=== PATIENT | male | born 1960 | race Caucasian/White ===

== ENCOUNTER 2023-04-04 13:55 | Outpatient (CLI) | payer BC, SELFPAY | END 2023-04-04 13:56 | disposition home or self-care (01) | PROVIDERS: PCP Family Medicine; Visit Provider Family Medicine | DX: R53.83 Other fatigue (principal); Z13.6 Encounter for screening for cardiovascular disorders; Z12.5 Encounter for screening for malignant neoplasm of prostate; Z13.29 Encounter for screening for other suspected endocrine disorder | CPT/HCPCS: 80053; 80061; 84153; 84443 ==

== ENCOUNTER 2023-10-01 13:09 | Outpatient (CLI) | payer BC, SELFPAY | END 2023-10-01 13:10 | disposition home or self-care (01) | LOC: NFLDREF 10-02 09:02 | PROVIDERS: PCP Family Medicine; Referring Provider Family Medicine; Visit Provider Family Medicine | DX: R35.0 Frequency of micturition (principal); N39.0 Urinary tract infection, site not specified; F41.1 Generalized anxiety disorder | CPT/HCPCS: 87086 ==

== ENCOUNTER 2025-01-12 14:05 | Outpatient (CLI) | payer BC, SELFPAY | END 2025-01-12 14:06 | disposition home or self-care (01) | PROVIDERS: PCP Family Medicine; Visit Provider Family Medicine | DX: R53.83 Other fatigue (principal); N32.0 Bladder-neck obstruction; Z12.5 Encounter for screening for malignant neoplasm of prostate; Z13.21 Encounter for screening for nutritional disorder; Z13.29 Encounter for screening for other suspected endocrine disorder | CPT/HCPCS: 80048; 82306; 82607; 84443; G0103 ==

== ENCOUNTER 2025-04-08 14:50 | Outpatient (CLI) | payer BC, SELFPAY | END 2025-04-08 14:51 | disposition home or self-care (01) | LOC: LKVREF 14:50 | PROVIDERS: PCP Family Medicine; Visit Provider Family Medicine | DX: R97.20 Elevated prostate specific antigen [PSA] (principal) | CPT/HCPCS: 84153 ==

== ENCOUNTER 2025-04-26 12:38 | Outpatient (CLI) | payer BC, SELFPAY ==
--- NOTE | 2025-04-26 13:49 | W.PM.STED ---
Stress Test Note Date Date Seen: 04/26/25 Date of test: 04/26/25 Providers Primary care provider: Casey Butts Stress test physician: Jaylin Zimmer Stress Test Note Stress test ordered: Stress Echo Indication for test: Chest pain Stress test medicine: None Results discussion: Resting EKG: Sinus rhythm, 64 beats per minute. Incomplete right bundle branch block, sinus arrhythmia. Resting blood pressure: 110/70 Stress test: Patient is consented on ordered stress test which is a exercise treadmill stress echo following [place] protocol, patient consents. Patient was able to exercise 8 minutes 3 seconds before terminating due to reaching exercise capacity. This was equivalent to 9.7 Mets. He did reach a maximum heart rate of 163 beats per minute which was 122% of a calculated target heart rate of 133. Patient had a rate pressure product of 22,494. Patient experienced no chest discomfort or chest pain, had no concerning symptoms during stress testing and recovered normally. There were no noted arrhythmias, no diagnostic criteria met for ischemia on the EKG. Echo images are pending to couple this for a full formal diagnostic result. Impression: Subjectively negative, objectively negative EKG portion of this stress echo. Follow up suggested: Patient discharged in stable condition to home. He is aware the echo images will be read by Cardiology and will couple this for a full formal report. He plans to get scheduled to see Dr. Butts next week where he can discuss results.
[2025-04-26 14:01] VITALS: BP 144/58; PULSE 86; RESP 18
== END 2025-04-26 14:02 | disposition home or self-care (01) ==
LOC: STRESS 12:39
PROVIDERS: PCP Family Medicine; Visit Provider Family Medicine
DX: R07.9 Chest pain, unspecified (principal)
CPT/HCPCS: 93016; 93325; 93351

== ENCOUNTER 2025-09-22 14:34 | Outpatient (CLI) | payer BC, SELFPAY | END 2025-09-22 14:35 | disposition home or self-care (01) | LOC: NFLDREF 09-28 09:24 | PROVIDERS: PCP Family Medicine; Referring Provider Family Medicine; Visit Provider Family Medicine | DX: Z00.00 Encounter for general adult medical examination without abnormal findings (principal); Z12.5 Encounter for screening for malignant neoplasm of prostate; Z13.6 Encounter for screening for cardiovascular disorders | CPT/HCPCS: 80053; 80061; G0103 ==

== ENCOUNTER 2025-09-27 13:03 | Outpatient (CLI) | payer BC, SELFPAY ==
--- NOTE | 2025-09-27 13:45 | CRLHL7_ITS ---
For Patients: As a result of the Century Cures Act, medical imaging exams and procedure reports are released immediately into your electronic medical record. You may view this report before your referring provider. If you have questions, please contact your health care provider. INDICATION: Right upper quadrant pain COMPARISON: none TECHNIQUE: Real time rodriguez scale imaging and color Doppler analysis was performed of the right upper quadrant. FINDINGS: Liver measures 17.6 cm. No intrahepatic mass. There is a normal appearance of the hepatic IVC and proximal abdominal aorta. There is no evidence of ascites. The gallbladder is of normal size and there is no evidence of intraluminal stones or sludge. The gallbladder wall measures 1 mm in thickness. The common bile duct is of normal size and measures 2 mm in diameter at the level of the lian hepatis. The visualized pancreas appears normal. There is no evidence of a stone or hydronephrosis within the right kidney. The right kidney measures 10.7 cm in length. IMPRESSION: Mild hepatomegaly. Remainder unremarkable. Dictated by Eugene Lee MD @ 09/27/2025 3:22:03 PM (Electronically Signed)
== END 2025-09-27 13:04 | disposition home or self-care (01) ==
PROVIDERS: PCP Family Medicine; Visit Provider Family Medicine
DX: R10.11 Right upper quadrant pain (principal); R16.0 Hepatomegaly, not elsewhere classified
CPT/HCPCS: 76705